=== PATIENT | female | born 1990 | race Caucasian/White ===

== ENCOUNTER 2016-10-20 20:36 | Emergency (ER) | payer OTHER ==
[2016-10-20 20:52] VITALS: BP 137/69; PULSE 119; TEMP 100.9; BMI 25.7
[2016-10-20] MEDS ORDERED: ONDANSETRON 4 MG/2 ML VIAL IVPUSH ONE (21:17)
[2016-10-20] MEDS ORDERED: SODIUM CHLORIDE 1,000 ML IV STA (21:17)
[2016-10-20] MEDS ORDERED: morphine CARPU-JECT 4 MG/1 ML DISP.SYRIN IVPUSH ONE (21:17)
[2016-10-20] MEDS ORDERED: ACETAMINOPHEN 500 MG TABLET (FP) PO ONE (21:19)
--- NOTE | 2016-10-20 21:25 | PDOC ---
History of Present Illness - General Chief Complaint: Pain Stated Complaint: ABD PAIN /FEVER Time Seen by Provider: 10/20/16 21:08 History Source: Patient Exam Limitations: No Limitations - History of Present Illness Travel History: No Initial Comments: 10/20/16 21:20 26yo Female patient w/ PmHx: Asthma and ruptured ovarian cyst presents to ED c/ o "pain in ovaries" x 1 week. Patient reports headache and fever (100.8). Patient states her LNMP: 5-4-17, usually irregular. Took test Friday and was negative. She denies dysuria, vaginal bleeding, hematuria, or any other complaints at this time. Timing/Duration: reports: getting worse Quality: reports: moderate Abdominal Pain Onset Location: reports: other (Pelvic) Pain Radiation: reports: no radiation Activities at Onset: reports: no specific activity Treatment Prior to Arrive: worse with: analgesics, antacids, cold pack, heat, laxative, enema, other Aggravating Factors: worse with: None, Defecation, Eating, Emotional upset, Exertion, [place], Movement, Voiding, Change in position Alleviating Factors: worse with: None, Belching, Shallow Breathing, Defecation, Eating, Holding Breath, Passing Gas, Change in Position, Rest, Voiding, Vomiting Past History - Travel Traveled outside of the country in the last 30 days: No Close contact w/someone who was outside of country & ill: No - Past Medical History Allergies/Adverse Reactions: Allergies Allergy/AdvReac Type Severity Reaction Status Date / Time No Known Allergies Allergy Verified 10/20/16 20:48 Home Medications: Ambulatory Orders NK [No Known Home Medication] 10/20/16 Asthma: Yes Thyroid Disease: No - Surgical History Appendectomy: Yes (@ age 4 years okd) - Reproductive History (#): 1 - Immunization History Immunization Up to Date: No - Psycho/Social/Smoking Cessation Hx Anxiety: No Suicidal Ideation: No Smoking History: Never smoked Number of Cigarettes Smoked Daily: 5 Information on smoking cessation initiated: No Hx Alcohol Use: No Drug/Substance Use Hx: No Substance Use Type: None *Physical Exam - Vital Signs Last Vital Signs Temp Pulse Resp BP Pulse Ox 100.9 F H 119 H 20 137/69 99 10/20/16 20:48 10/20/16 20:48 10/20/16 20:48 10/20/16 20:48 10/20/16 20:48 ED Treatment Course - LABORATORY CBC & Chemistry Diagram: 10/20/16 21:40 10/20/16 21:40 - RADIOLOGY Radiology Studies Ordered: Category Date Time Status PELVIS(OTHER) US [US] Stat Ultrasound 10/20/16 21:17 Ordered Medical Decision Making - Medical Decision Making 10/21/16 02:16 Patient requesting d/c. Will f/u with [facility] P[facility]. She reports improvement in symptoms. *DC/Admit/Observation/Transfer Diagnosis at time of Disposition: Pain in pelvis - Discharge Dispostion Disposition: HOME Condition at time of disposition: Improved Admit: No - Patient Instructions Printed Discharge Instructions: DI for Pelvic Pain Additional Instructions: FOLLOW UP WITH YOUR [facility] TOMORROW. CALL TO SCHEDULE APPOINTMENT. MOTRIN OR TYLENOL FOR PAIN NEEDED. RETURN IF YOU SPIKE FEVER, DEVELOP SEVERE ABDOMINAL PAIN, NAUSEA AND VOMITING OR ANY CONCERNS FOR FURTHER EVALUATION. Print Language: SWAZI - Post Discharge Activity Work/School Note: Back to Work
[2016-10-20 21:51] LABS: BASOPHIL 0.4 % (0-2.0); EOSINOPHIL 0.7 % (0-4.5); MCH 23.6 pg (25.7-33.7); MCHC 31.6 g/dl (32.0-36.0); MEAN CELL VOLUME 74.7 fl (80-96); MEAN PLT VOLUME 8.6 fl (7.5-11.1); NEUTROPHILS 63.3 % (42.8-82.8); PLATELET COUNT 234 K/MM3 (134-434); RDW 16.4 % (11.6-15.6)
[2016-10-20] MEDS ORDERED: ACETAMINOPHEN 325 MG TABLET (FP) ONE (21:52)
[2016-10-20] MEDS ORDERED: morphine CARPU-JECT 4 MG/1 ML DISP.SYRIN ONE (21:52)
[2016-10-20 22:00] LABS: URINE APPEARANCE CLEAR; URINE BILIRUBIN NEGATIVE (NEGATIVE); URINE BLOOD NEGATIVE (NEGATIVE); URINE COLOR STRAW; URINE GLUCOSE (UA) NEGATIVE (NEGATIVE); URINE KETONE NEGATIVE (NEGATIVE); URINE LEUK ESTERASE NEGATIVE (NEGATIVE); URINE NITRITE NEGATIVE (NEGATIVE); URINE PROTEIN NEGATIVE (NEGATIVE); URINE UROBILINOGEN NEGATIVE mg/dL (0.2-1.0)
[2016-10-20 22:23] LABS: ALBUMIN 3.4 g/dl (3.4-5.0); ALK PHOS 86 U/L (45-117); ANION GAP 8 (8-16); BILIRUBIN,TOTAL 0.2 mg/dL (0.2-1.0); CALCIUM 8.4 mg/dL (8.5-10.1); CO2 28 mmol/L (21-32); CREATININE 0.7 mg/dL (0.55-1.02); GLUCOSE,RANDOM 113 mg/dL (74-106); SGOT/AST 20 U/L (15-37); SGPT/ALT 24 U/L (12-78); TOT PROT 7.7 g/dl (6.4-8.2)
--- NOTE | 2016-10-20 23:05 | PDOC ---
*Physical Exam - Vital Signs Last Vital Signs Temp Pulse Resp BP Pulse Ox 100.9 F H 119 H 20 137/69 99 10/20/16 20:48 10/20/16 20:48 10/20/16 20:48 10/20/16 20:48 10/20/16 20:48 ED Treatment Course - LABORATORY CBC & Chemistry Diagram: 10/20/16 21:40 10/20/16 21:40 - ADDITIONAL ORDERS Additional order review: Laboratory Results 10/20/16 10/20/16 10/20/16 21:40 21:40 21:40 Sodium 141 Potassium 3.7 Chloride 105 Carbon Dioxide 28 Anion Gap 8 BUN 6 L Creatinine 0.7 D Creat Clearance w eGFR > 60 Random Glucose 113 H D Calcium 8.4 L Total Bilirubin 0.2 AST 20 D ALT 24 Alkaline Phosphatase 86 D Total Protein 7.7 Albumin 3.4 Serum , Qual Negative Urine Color Straw Urine Appearance Clear Urine pH 7.0 Urine Protein Negative Urine Glucose (UA) Negative Urine Ketones Negative Urine Blood Negative Urine Nitrite Negative Urine Bilirubin Negative Urine Urobilinogen Negative Ur Leukocyte Esterase Negative Urine HCG, Qual Cancelled Blood Type O POSITIVE Antibody Screen Negative 10/20/16 21:40 RBC 4.48 MCV 74.7 L MCHC 31.6 L RDW 16.4 H MPV 8.6 Neutrophils % 63.3 D Lymphocytes % 25.8 D Monocytes % 9.8 Eosinophils % 0.7 D Basophils % 0.4 - Medications Given in the ED: ED Medications Discontinued Medications Generic Name Dose Route Start Last Admin Trade Name Freq PRN Reason Stop Dose Admin Acetaminophen 1,000 mg 10/20/16 21:19 10/20/16 22:06 Tylenol - PO 10/20/16 21:20 1,000 mg ONCE ONE Administration Sodium Chloride 1,000 mls @ 1,000 mls/hr 10/20/16 21:17 10/20/16 22:06 Normal Saline - IV 10/20/16 22:16 1,000 mls/hr ASDIR STA Administration Morphine Sulfate 4 mg 10/20/16 21:17 10/20/16 22:06 Morphine Injection - IVPUSH 10/20/16 21:18 4 mg ONCE ONE Administration Ondansetron HCl 4 mg 10/20/16 21:17 10/20/16 22:06 Zofran Injection IVPUSH 10/20/16 21:18 4 mg ONCE ONE Administration Medical Decision Making - Medical Decision Making 10/20/16 23:04 Pt seen by the Advanced Practice Provider under my direct supervision Ancillary studies reviewed I agree with plan as outlined by the Advanced Practice Provider [employer]CHEOLOG[employer] FACULTY MEMBER Kevin
[2016-10-21] MEDS ORDERED: traMADol HCL 50 MG TABLET PO ONE (02:38)
[2016-10-21] MEDS ORDERED: traMADol HCL 50 MG TABLET ONE (02:41)
== END 2016-10-21 02:48 | disposition home or self-care (01) ==
LOC: JER 20:36
PROC: 3E033NZ Introduction of Analgesics, Hypnotics, Sedatives into Peripheral Vein, Percutaneous Approach (ICD-10-PCS; principal; 2016-10-20)
PROC: 3E033GC Introduction of Other Therapeutic Substance into Peripheral Vein, Percutaneous Approach (ICD-10-PCS; 2016-10-20)
DX: R10.2 Pelvic and perineal pain (principal)
CPT/HCPCS: 36415; 76830-TC; 80053; 81003; 84703; 85025; 86850; 86900; 86901; 87086; 96374; 96375; 99283-25

== ENCOUNTER 2017-04-10 10:22 | Emergency (ER) | payer OTHER ==
[2017-04-10 10:31] VITALS: BP 139/80; PULSE 106; TEMP 98.3; BMI 26.4
--- NOTE | 2017-04-10 10:57 | PDOC ---
History of Present Illness - General Chief Complaint: Back Pain Stated Complaint: BACK PAIN (11 WKS ) Time Seen by Provider: 04/10/17 10:39 History Source: Patient Exam Limitations: No Limitations - History of Present Illness Initial Comments: 04/10/17 10:55 CHIEF COMPLAINT: [Bilateral Lower back pain] HISTORY OF PRESENT ILLNESS:[ 27]-year-old [female],[ currently 11 weeks , denies any significant medical history, currently only on vitamins presents with reproducible generalized lower back pain for several days. Patient denies lifting anything heavy however has a 1-year-old at home. Has been taking Tylenol 500 mg 2 tablets every 8 hours for pain did not take any today . Patient denies any vaginal bleeding or discharge. No abdominal pain. Pain is localized to bilateral lateral lower back , Nonradiating pain, no neurosensory deficits, no bowel or bladder difficulty incontinence or urinary retention, no saddle anesthesia, no footdrop. No history of IVDU or history of cancer. ] REVIEW OF SYSTEMS: GENERAL: Afebrile, denies any weakness RESPIRATORY: No cough, wheezing, or hemoptysis. CARDIAC: No chest pain or shortness of breath MUSCULOSKELETAL: Pain to generalized lower back. No point tenderness. Pain to bilateral lower back SKIN : No erythema, no bruising, no deformity. GI/: Denies any abdominal pain, no urinary difficulty, incontinence or urinary retention. RECTAL: Denies any difficulty this A.m. NEUROLOGICAL: Denies any numbness or tingling. No neurosensory deficits. PHYSICAL EXAM: GENERAL: The patient is awake, alert, and fully oriented, in no acute distress. RESPIRATORY: Lungs clear bilaterally, no rhonchi wheezes or crackles CARDIAC: S1-S2 audible, no murmur rub or gallop MUSCULOSKELETAL: Pain to generalized lower back, nonradiating, no tingling or sensory deficit. Less than 2 second cap refill, +4 popliteal and pedal pulses. No direct spinal point tenderness. GI/: Abdomen soft, nontender, nondistended. No rebound tenderness. No masses palpable. MUSCULOSKELETAL: No spinal point tenderness. Normal reflexive and no deficits to sensation or strength. RECTAL: [Normal Rectal Tone]. SKIN: Warm, Dry, normal turgor, no erythema, no edema no bruising. 04/10/17 12:01 Past History - Past Medical History Allergies/Adverse Reactions: Allergies Allergy/AdvReac Type Severity Reaction Status Date / Time No Known Allergies Allergy Verified 04/10/17 10:27 Home Medications: Ambulatory Orders NK [No Known Home Medication] 04/10/17 Asthma: Yes COPD: No Thyroid Disease: No - Surgical History Abdominal Surgery: Yes (uterine polyps) Appendectomy: Yes (@ age 4 years okd) - Reproductive History (#): 1 - Immunization History Immunization Up to Date: No - Suicide/Smoking/Psychosocial Hx Smoking History: Never smoked Have you smoked in the past 12 months: No Number of Cigarettes Smoked Daily: 5 Information on smoking cessation initiated: No Hx Alcohol Use: No Drug/Substance Use Hx: No Substance Use Type: None *Physical Exam - Vital Signs Last Vital Signs Temp Pulse Resp BP Pulse Ox 98.3 F 106 H 18 139/80 100 04/10/17 10:28 04/10/17 10:28 04/10/17 10:28 04/10/17 10:28 04/10/17 10:28 Medical Decision Making - Medical Decision Making 04/10/17 10:57 A/P: Patient with bilateral lateral lower back pain, most likely musculoskeletal in nature 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 I will send urinalysis and urine culture to rule out acute infection 04/10/17 12:01 Laboratory Results - last 24 hr 04/10/17 10:50 Urine Color Yellow Urine Appearance Clear Urine pH 6.0 Ur Specific [place] 1.018 Urine Protein Negative Urine Glucose (UA) Negative Urine Ketones Negative Urine Blood Negative Urine Nitrite Negative Urine Bilirubin Negative Urine Urobilinogen Negative Urine is negative, Tylenol was given with good result patient states pain is mildly relieved after medication. We'll DC patient home, Tylenol as needed for pain, follow-up with her [employer]ICER if any abdominal pain, vaginal discharge or bleeding please return immediately to ER *DC/Admit/Observation/Transfer Diagnosis at time of Disposition: Musculoskeletal back pain - Discharge Dispostion Disposition: HOME Condition at time of disposition: Good Admit: No - Referrals Referrals: Pan Mckinney MD [Primary Care Provider] - - Patient Instructions Additional Instructions: Tylenol [id number] 2 tablets as needed for pain If any abdominal pain, vaginal discharge or bleeding or any other concerns return immediately to ER Recommend follow-up with PMD if pain persists - Post Discharge Activity Forms/Work/School Notes: Back to Work
[2017-04-10 11:32] LABS: URINE APPEARANCE CLEAR; URINE BILIRUBIN NEGATIVE (NEGATIVE); URINE BLOOD NEGATIVE (NEGATIVE); URINE COLOR YELLOW; URINE GLUCOSE (UA) NEGATIVE (NEGATIVE); URINE KETONE NEGATIVE (NEGATIVE); URINE LEUK ESTERASE NEGATIVE (NEGATIVE); URINE NITRITE NEGATIVE (NEGATIVE); URINE PROTEIN NEGATIVE (NEGATIVE); URINE UROBILINOGEN NEGATIVE mg/dL (0.2-1.0)
[2017-04-10] MEDS ORDERED: ACETAMINOPHEN 500 MG TABLET (FP) PO ONE (11:38)
[2017-04-10] MEDS ORDERED: ACETAMINOPHEN 500 MG TABLET (FP) ONE (11:50)
--- NOTE | 2017-04-12 07:47 | PDOC ---
Patient Follow-up (Call Back) - Post ED Follow - Up Condition at time of discharge: Good Disposition at time of original discharge: HOME Reason for Call Back: Abnwl. Microbiology (Patient's urine culture on preliminary shows staphylococcal coagulase 30,000- 40,000 CFU per milliliter. Based on patient's history of present illness and exam Will await final report.)
== END 2017-04-10 12:09 | disposition home or self-care (01) ==
LOC: JERFT 10:22
DX: O26.892 Other specified pregnancy related conditions, second trimester (principal); M79.1 Myalgia; Z3A.11 11 weeks gestation of pregnancy; J45.909 Unspecified asthma, uncomplicated
CPT/HCPCS: 81003; 87086; 87186; 99281-25

== ENCOUNTER 2017-05-10 21:13 | Emergency (ER) | payer OTHER ==
[2017-05-10 21:51] VITALS: BP 121/78; PULSE 127; TEMP 100.1; BMI 26.6
--- NOTE | 2017-05-10 22:38 | PDOC ---
History of Present Illness - General Chief Complaint: Cold Symptoms Stated Complaint: FEVER/16 WEEKS PREG Time Seen by Provider: 05/10/17 22:06 History Source: Patient Exam Limitations: No Limitations - History of Present Illness Initial Comments: This is a 27 YO (16 wks ) female with h/o anemia and asthma who presents with fever, sore throat, congestion, cough productive of white sputum, SOB, chest discomfort only when coughing, nausea, vomiting, and lower abdominal discomfort only when vomiting, all worsening for the past 2-3 days. She has been taking Tylenol for the symptoms but no additional medications. She denies any diarrhea, constipation, leg swelling or pain, rash, or other symptoms. 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 She denies vaginal bleeding or discharge. She has allergies to clindamycin. Past History - Past Medical History Allergies/Adverse Reactions: Allergies Allergy/AdvReac Type Severity Reaction Status Date / Time No Known Allergies Allergy Verified 05/10/17 21:48 Home Medications: Ambulatory Orders Nitrofurantoin Monohyd/M-Cryst [Macrobid -] 100 mg PO BID #14 capsule 04/14/17 Oseltamivir Phosphate [Tamiflu] 75 mg PO BID #9 capsule 05/11/17 Asthma: Yes COPD: No Thyroid Disease: No - Surgical History Abdominal Surgery: Yes (uterine polyps) Appendectomy: Yes (@ age 4 years okd) - Reproductive History (#): 1 - Immunization History Immunization Up to Date: No - Suicide/Smoking/Psychosocial Hx Smoking History: Never smoked Have you smoked in the past 12 months: No Number of Cigarettes Smoked Daily: 5 Hx Alcohol Use: No Drug/Substance Use Hx: No Substance Use Type: None Review of Systems - Review of Systems Able to Perform ROS?: Yes Constitutional: Yes: Chills, Fever, Weakness. No: Unexplained wgt Loss HEENTM: Yes: Nose Congestion, Throat Pain Respiratory: Yes: Cough, Shortness of Breath, Productive cough. No: Stridor, Wheezing Cardiac (ROS): Yes: Other (chest discomfort when coughing). No: Palpitations ABD/GI: Yes: Nausea, Vomiting. No: Constipated, Diarrhea : Yes: Other (no vaginal bleeding or discharge). No: Burning, Dysuria, Hematuria Musculoskeletal: No: Back Pain, Neck Pain Integumentary: No: Bruising, Rash Neurological: No: Headache, Numbness, Tingling, Weakness, Dizziness Endocrine: No: Unexplained Weight Gain, Unexplained Weight Loss *Physical Exam - Vital Signs Last Vital Signs Temp Pulse Resp BP Pulse Ox 100.1 F H 127 H 20 121/78 99 05/10/17 21:48 05/10/17 21:48 05/10/17 21:48 05/10/17 21:48 05/10/17 21:48 - Physical Exam General Appearance: Yes: Nourished, Appropriately Dressed, Other (pleasant adult female in mild distress from frequent cough productive of white sputum seen as she expectorates into sink, able to converse in complete sentences when not coughing, answering questions appropriately). No: Apparent Distress HEENT: positive: EOMI, ZOE, Normal Voice, Muffled/Hoarse voice, Pharyngeal Erythema, Nasal Congestion, Rhinorrhea, Hearing Grossly Normal. negative: Scleral Icterus (R), Scleral Icterus (L), Tonsillar Exudate, Tonsillar Erythema Neck: positive: Trachea midline, Supple. negative: Tender, Rigid, Lymphadenopathy (R), Lymphadenopathy (L) Respiratory/Chest: positive: Lungs Clear, Normal Breath Sounds. negative: Respiratory Distress, Crackles, Rhonchi, Stridor, Wheezing Cardiovascular: positive: Regular Rhythm, S1, S2, Tachycardia. negative: Murmur Gastrointestinal/Abdominal: positive: Normal Bowel Sounds, Soft, Other (gravid) . negative: Tender, Organomegaly, Pulsatile Mass, Guarding Musculoskeletal: positive: Normal Inspection. negative: Decreased Range of Motion, Vertebral Tenderness Extremity: positive: Normal Capillary Refill, Normal Inspection, Normal Range of Motion. negative: Tender, Cyanosis Integumentary: positive: Normal Color, Dry, Warm. negative: Erythema, Rash, Bruising Neurologic: positive: shop assistant II-XII NML intact (grossly), Fully Oriented, Alert, Normal Mood/Affect, Normal Response, Motor Strength 5/5 ED Treatment Course - LABORATORY CBC & Chemistry Diagram: 05/10/17 23:15 05/10/17 23:15 Medical Decision Making - Medical Decision Making 27 YOF who is , 16 wks , h/o asthma and anemia, p/w productive cough , fever, SOB x2d. On exam VS notable for tachycardia to 127, fever to 100.1, mild distress d/t coughing. *DC/Admit/Observation/Transfer Diagnosis at time of Disposition: Influenza A Fever Qualifiers: Fever type: unspecified Qualified Code(s): R50.9 - Fever, unspecified Qualifiers: Weeks of gestation: 16 weeks Qualified Code(s): Z3A.16 - 16 weeks gestation of - Discharge Dispostion Disposition: HOME Condition at time of disposition: Stable Admit: No - Prescriptions Prescriptions: Oseltamivir Phosphate [Tamiflu] 75 mg PO BID #9 capsule - Referrals Referrals: Pan Mckinney MD [Primary Care Provider] - - Patient Instructions Printed Discharge Instructions: DI for Influenza -- Adult Additional Instructions: You were seen in the ER for fever, cough, and shortness of breath. We did lab work on your blood and urine, and did a flu swab, as well as an electrocardiogram. The only abnormality we found was that you are influenza A positive. There is a urine culture test being run on your urine sample, and this takes 2 days to get official results. If the results are positive, we will call you in 2 days. If you do not receive a call and begin having burning on urination, please call into the ER to talk about results of the urine culture. Please take the Tamiflu antiviral prescription we are sending to your pharmacy. Follow up with your regular doctor, or return to the emergency room for any new or worsening symptoms. If your baby at home (or other family members) start becoming sick with similar symptoms, take them to the doctor. - Post Discharge Activity Forms/Work/School Notes: Back to Work
[2017-05-10] MEDS ORDERED: ACETAMINOPHEN 1000 MG/100 ML VIAL (NON FORMULARY) IVPB ONE (22:43)
[2017-05-10] MEDS ORDERED: SODIUM CHLORIDE 500 ML IV STA (22:43)
[2017-05-10] MEDS ORDERED: ACETAMINOPHEN INJECTION 100 ML IVPB ONE (23:15)
[2017-05-10 23:27] LABS: BASO % 0.4 % (0-2.0); EOS % 1.2 % (0-4.5); HEMATOCRIT 36.3 % (32.4-45.2); HEMOGLOBIN 11.6 GM/dL (10.7-15.3); MCH 24.1 pg (25.7-33.7); MEAN CELL VOLUME 75.4 fl (80-96); MEAN PLT VOLUME 9.5 fl (7.5-11.1); MONO % 14.4 % (3.8-10.2); PLATELET COUNT 201 K/MM3 (134-434); RBC 4.81 M/mm3 (3.60-5.2); RDW 19.1 % (11.6-15.6); WHITE BLOOD COUNT 5.4 K/mm3 (4.0-10.0)
[2017-05-10 23:28] LABS: URINE APPEARANCE SLCLOUDY; URINE BILIRUBIN NEGATIVE (NEGATIVE); URINE BLOOD NEGATIVE (NEGATIVE); URINE COLOR LTYELLOW; URINE GLUCOSE (UA) NEGATIVE (NEGATIVE); URINE KETONE NEGATIVE (NEGATIVE); URINE NITRITE NEGATIVE (NEGATIVE); URINE PROTEIN NEGATIVE (NEGATIVE); URINE UROBILINOGEN NEGATIVE mg/dL (0.2-1.0)
[2017-05-10 23:33] LABS: URINE LEUK ESTERASE 2+ (NEGATIVE)
[2017-05-10 23:34] LABS: EPI CELLS FEW /HPF (FEW); URINE BACTERIA RARE /hpf (NONE SEEN)
[2017-05-10 23:50] LABS: ALBUMIN 3.2 g/dl (3.4-5.0); ALK PHOS 61 U/L (45-117); ANION GAP 11 (8-16); BILIRUBIN,TOTAL 0.2 mg/dL (0.2-1.0); BLOOD UREA NITROGEN 5 mg/dL (7-18); CALCIUM 8.3 mg/dL (8.5-10.1); CHLORIDE 102 mmol/L (98-107); CO2 25 mmol/L (21-32); CREATININE 0.6 mg/dL (0.55-1.02); GLUCOSE,RANDOM 114 mg/dL (74-106); MAGNESIUM 1.7 mg/dL (1.8-2.4); POTASSIUM 3.5 mmol/L (3.5-5.1); SGOT/AST 17 U/L (15-37); SGPT/ALT 20 U/L (12-78); SODIUM 138 mmol/L (136-145); TOT PROT 7.7 g/dl (6.4-8.2)
--- NOTE | 2017-05-10 23:59 | PDOC ---
Attending Attestation - HPI HPI: 05/11/17 01:25 The patient is a 27 year old female, 16 weeks (), with a significant past medical history of anemia who presents to the ED with cold like symptoms for several days. The patient reports a productive cough of white sputum, a subjective fever, nausea, and vomiting. Patient also reports chest discomfort and lower abdominal pain only when she cough. She reports taking tylenol with slight relief of present symptoms. Denies shortness of breath. Denies dysuria or change in urinary output. Denies vaginal discharge or bleeding. Denies any other symptoms. - Physicial Exam PE: 05/11/17 01:25 GENERAL: Awake, alert, and fully oriented, in no acute distress HEAD: No signs of trauma EYES: PERRLA, EOMI, sclera anicteric, conjunctiva clear ENT: Auricles normal inspection, hearing grossly normal, nares patent, oropharynx clear without exudates. Moist mucosa NECK: Normal ROM, supple, no lymphadenopathy, JVD, or masses LUNGS: Breath sounds equal, clear to auscultation bilaterally. No wheezes, and no crackles HEART: tachy but regular, rate 104, normal S1 and S2, no murmurs, rubs or gallops ABDOMEN: Soft, nontender, normoactive bowel sounds. No guarding, no rebound. Gravid uterus to 3 cm above pubic symphasis EXTREMITIES: Normal range of motion, no edema. No clubbing or cyanosis. No cords , erythema, or tenderness BACK: No midline spinal tenderness in cervical/thoracic/lumbar region NEUROLOGICAL: Normal speech, cranial nerves intact, negative pronator drift, 5/ 5 strength in all 4 extremities, normal sensation to light touch in all 4 extremities, normal cerebellar exam, normal gait, normal reflexes and tone SKIN: Warm, Dry, normal turgor, no rashes or lesions noted. <Beatris Kim - Last Filed: 05/11/17 01:25> - Resident Resident Name: Nikki Dawkins - ED Attending Attestation I have performed the following: I have examined & evaluated the patient, The case was reviewed & discussed with the resident, I agree w/resident's findings & plan, Exceptions are as noted - Medical Decision Making 05/10/17 23:09 27-year-old female, 16 weeks , presents with body aches, nausea, cough, and pain in her chest and abdomen only when she coughs. Vitals remarkable for elevated temperature to 100.1 and tachycardia initially to 125. On my exam her heart rate is 104. Exam is unremarkable with clear lungs and no abdominal tenderness to palpation. 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 We'll obtain an EKG, basic labs, and urinalysis. Given that her lungs are clear well not obtain an x-ray. Tachycardia is likely due to elevated temperature and probable decreased PO intake due to nausea. We'll give fluids and reassess vitals. 05/11/17 00:44 Repeat heart rate after fluids 98. Remainder of vitals wnl. Patient is Flu A positive. She was given a dose of Tamiflu and a prescription sent to pharmacy. All results discussed the patient. She requests discharge home. I discussed the physical exam findings, ancillary test results and final diagnoses with the patient. I answered all of the patient's questions. The patient was satisfied with the care received and felt comfortable with the discharge plan and treatment plan. The patient will call their primary care physician within 24 hours to arrange follow-up and will return to the Emergency Department with any new, persistent or worsening symptoms. <Gini Topete - Last Filed: 05/11/17 01:45>
[2017-05-11] MEDS ORDERED: OSELTAMIVIR PHOSPHATE 75 MG CAPSULE PO ONE (00:02)
[2017-05-11] MEDS ORDERED: OSELTAMIVIR PHOSPHATE 75 MG CAPSULE ONE (00:04)
--- NOTE | 2017-05-11 12:24 | EKG ---
Test Reason : Blood Pressure : / mmHG Vent. Rate : 109 BPM Atrial Rate : 109 BPM P-R Int : 188 ms QRS Dur : 078 ms QT Int : 318 ms P-R-T Axes : 054 062 028 degrees QTc Int : 428 ms SINUS TACHYCARDIA NONSPECIFIC T WAVE ABNORMALITY ABNORMAL ECG NO PREVIOUS ECGS AVAILABLE CLINICAL CORRELATION IS RECOMMENDED Confirmed by CHANDLER RIBEIRO, SHAHID ([id number]) on 05/11/2017 12:24:10 PM Referred By: Confirmed By:SHAHID ARTEAGA MD
--- NOTE | 2017-05-13 07:31 | PDOC ---
Patient Follow-up (Call Back) - Post ED Follow - Up Condition at time of discharge: Stable Disposition at time of original discharge: HOME Reason for Call Back: Abnwl. Microbiology - Disposition Additional Instructions/Notes: Urine preliminary shows staphylococcal coagulation negative. Patient's labs including UA in the ED were within normal limits except for she was positive for influenza A. Will await final report.
== END 2017-05-11 00:24 | disposition home or self-care (01) ==
LOC: JER 21:13
PROC: 3E033NZ Introduction of Analgesics, Hypnotics, Sedatives into Peripheral Vein, Percutaneous Approach (ICD-10-PCS; principal; 2017-05-10)
DX: O98.512 Other viral diseases complicating pregnancy, second trimester (principal); J09.X2 Influenza due to identified novel influenza A virus with other respiratory manifestations; Z3A.16 16 weeks gestation of pregnancy
CPT/HCPCS: 36415; 80053; 81003; 81015; 82550; 83735; 84484; 85025; 87086; 87186; 87804; 93005; 93010; 96374; 99282-25

== ENCOUNTER 2017-05-11 16:33 | Emergency (ER) | payer OTHER ==
[2017-05-11 16:55] VITALS: BMI 26.6
[2017-05-11] MEDS ORDERED: ACETAMINOPHEN 500 MG TABLET (FP) PO ONE ×2 (16:58→23:03)
--- NOTE | 2017-05-11 17:24 | PDOC ---
History of Present Illness - General Chief Complaint: Respiratory Stated Complaint: CHEST PAIN Time Seen by Provider: 05/11/17 17:22 - History of Present Illness Initial Comments: 05/11/17 17:32 27 yo at 16 wga with h/o anemia who presents with cough. Patient reports ongoing cough with clear sputum production, myalgias, pleuritic chest pain, abdominal discomfort, subjective fevers, congestion, and sore throat. Reports inability to tolerate Tamiflu today d/t emesis. Denies vaginal bleeding, dysuria , diarrhea, hematuria, palpitations, wheezing, LOC. Symptoms refractory to OTC Tylenol. 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 Patient recently evaluated in [facility] ED ( 05/10/16) and was Flu A positive. Sent home with Tamiflu. Past History - Past Medical History Allergies/Adverse Reactions: Allergies Allergy/AdvReac Type Severity Reaction Status Date / Time No Known Allergies Allergy Verified 05/11/17 16:49 Home Medications: Ambulatory Orders Nitrofurantoin Monohyd/M-Cryst [Macrobid -] 100 mg PO BID #14 capsule 04/14/17 Ondansetron HCl [Zofran] 4 mg PO TID PRN 7 Days #21 tablet MDD 3 tab 05/11/17 Oseltamivir Phosphate [Tamiflu] 75 mg PO BID #9 capsule 05/11/17 Asthma: Yes COPD: No Thyroid Disease: No - Surgical History Abdominal Surgery: Yes (uterine polyps) Appendectomy: Yes (@ age 4 years okd) - Reproductive History (#): 1 - Immunization History Immunization Up to Date: No - Suicide/Smoking/Psychosocial Hx Smoking History: Former smoker Have you smoked in the past 12 months: Yes Number of Cigarettes Smoked Daily: 5 Information on smoking cessation initiated: No Hx Alcohol Use: No Drug/Substance Use Hx: No Substance Use Type: None Review of Systems - Review of Systems Comments:: 05/11/17 17:24 GENERAL/CONSTITUTIONAL: No fever or chills. No weakness. HEAD, EYES, EARS, NOSE AND THROAT: No change in vision. No ear pain or discharge. No sore throat.- CARDIOVASCULAR: No chest pain or shortness of breath RESPIRATORY: No cough, wheezing, or hemoptysis. GASTROINTESTINAL: No nausea, vomiting, diarrhea or constipation. GENITOURINARY: No dysuria, frequency, or change in urination. MUSCULOSKELETAL: No joint or muscle swelling or pain. No neck or back pain. SKIN: No rash NEUROLOGIC: No headache, vertigo, loss of consciousness, or change in strength/ sensation. ENDOCRINE: No increased thirst. No abnormal weight change HEMATOLOGIC/LYMPHATIC: No anemia, easy bleeding, or history of blood clots. ALLERGIC/IMMUNOLOGIC: No hives or skin allergy. *Physical Exam - Vital Signs Last Vital Signs Temp Pulse Resp BP Pulse Ox 102.9 F H 138 H 24 137/91 100 05/11/17 16:49 05/11/17 16:49 05/11/17 16:49 05/11/17 16:49 05/11/17 16:49 - Physical Exam Comments: 05/11/17 17:24 GENERAL: Awake, alert, and fully oriented, in no acute distress HEAD: No signs of trauma, normocephalic, atraumatic EYES: PERRLA, EOMI, sclera anicteric, conjunctiva clear ENT: Hearing grossly normal, nares patent, oropharynx clear without exudates. Moist mucosa NECK: Normal ROM, no JVD, or masses LUNGS: No distress, speaks full sentences, clear to auscultation bilaterally HEART: irregular rate and rhythm, normal S1 and S2, no murmurs, rubs or gallops , peripheral pulses normal and equal bilaterally. ABDOMEN: Soft, epigastric ttp, normoactive bowel sounds. No guarding, no rebound. No masses EXTREMITIES : Normal inspection, Normal range of motion, no edema. No clubbing or cyanosis. SKIN: Warm, Dry, normal turgor, no rashes or lesions noted. ED Treatment Course - Medications Given in the ED: ED Medications Discontinued Medications Generic Name Dose Route Start Last Admin Trade Name Freq PRN Reason Stop Dose Admin Acetaminophen 975 mg 05/11/17 16:58 05/11/17 17:03 Tylenol - PO 05/11/17 16:59 975 mg NOW ONE Administration Medical Decision Making - Medical Decision Making 05/11/17 17:36 27 yo at 16 wga with h/o anemia, and asthma who presents with cough. Patient reports ongoing cough with clear sputum production, myalgias, pleuritic chest pain, abdominal discomfort, subjective fevers, congestion, and sore throat. Reports inability to tolerate Tamiflu today d/t emesis. Denies vaginal bleeding, dysuria, diarrhea, hematuria, palpitations, wheezing, LOC. Symptoms refractory to OTC Tylenol. Flu A positive ( 05/10/16). Physical exam uremarkable. Sinus tachycardia 138. Symptoms most likely 2/2 influenza in setting of recent diagnosis and contd, stable symptoms. ED Course: EKG: Sinus tachycardia, with absent DARRICK, STD, or TWI. Normal interval duration. Normal axis Zofran, IV NS, Tylenol Patient symptoms improved and stable for d/c with return precautions. Advised to f/u with PMD. Zofran sent to pharmacy. *DC/Admit/Observation/Transfer Diagnosis at time of Disposition: Nausea and vomiting during - Discharge Dispostion Disposition: HOME Condition at time of disposition: Stable Admit: No - Prescriptions Prescriptions: Ondansetron HCl [Zofran] 4 mg PO TID PRN 7 Days #21 tablet MDD 3 tab PRN Reason: Nausea - Referrals Referrals: Pan Mckinney MD [Primary Care Provider] - - Patient Instructions Additional Instructions: Please return to the emergency department with any new or worsening symptoms or concerns. Please follow up with your primary care physician within one week. Please take zofran as tolerated. - Post Discharge Activity - Attestations Physician Attestion: 05/11/17 18:18 I attest to the documentation provided in this note.
[2017-05-11] MEDS ORDERED: ONDANSETRON 4 MG TABLET PO ONE (17:51)
[2017-05-11] MEDS ORDERED: SODIUM CHLORIDE 1,000 ML IV STA (17:51)
[2017-05-11] MEDS ORDERED: ONDANSETRON *ODT* 4 MG TABLET ONE (17:58)
[2017-05-11 18:57] VITALS: PULSE 113
--- NOTE | 2017-05-11 22:54 | PDOC ---
Attending Attestation - Resident Resident Name: Conner Young - ED Attending Attestation I have performed the following: I have examined & evaluated the patient, The case was reviewed & discussed with the resident, I agree w/resident's findings & plan, Exceptions are as noted - HPI HPI: 05/11/17 22:51 27 yo female who is preganant she has influenza disgnosed yesterday who p/w pelvic pain and nausea - Physicial Exam PE: 05/11/17 22:56 27-year-old female who has had some nausea and was not able to keep her tablets down. Patient was given IV fluids and Zofran Well-nourished, well-developed 27-year-old female. Head normocephalic, atraumatic. Neck no bruits, supple, no significant lymphadenopathy. Lungs clear to auscultation bilaterally CVS tachycardia Abdomen slightly protuberant, no rebound or guarding. Pelvis deferred. Extremities no significant edema, cellulitis or erythema. Skin warm and dry. Neuro alert and oriented 3 with no gross focal neural deficits - Medical Decision Making 05/11/17 22:58 Ultrasound shows a single live intrauterine of 16 weeks and one day, heart tones at 150s beats, cervical length 3.2 cm, movement is seen,
--- NOTE | 2017-05-11 23:04 | PDOC ---
History of Present Illness <Bonnie Jenkins - Last Filed: 05/11/17 23:04> <Briseyda Lal - Last Filed: 05/11/17 23:09> - General Chief Complaint: Respiratory Stated Complaint: CHEST PAIN Time Seen by Provider: 05/11/17 17:22 Past History - Past Medical History Asthma: Yes COPD: No Thyroid Disease: No - Surgical History Abdominal Surgery: Yes (uterine polyps) Appendectomy: Yes (@ age 4 years okd) - Reproductive History (#): 1 - Immunization History Immunization Up to Date: No - Suicide/Smoking/Psychosocial Hx Smoking History: Former smoker Have you smoked in the past 12 months: Yes Number of Cigarettes Smoked Daily: 5 Information on smoking cessation initiated: No Hx Alcohol Use: No Drug/Substance Use Hx: No Substance Use Type: None <Bonnie Jenkins - Last Filed: 05/11/17 23:04> <Briseyda Lal - Last Filed: 05/11/17 23:09> - Past Medical History Allergies/Adverse Reactions: Allergies Allergy/AdvReac Type Severity Reaction Status Date / Time No Known Allergies Allergy Verified 05/11/17 16:49 Home Medications: Ambulatory Orders Nitrofurantoin Monohyd/M-Cryst [Macrobid -] 100 mg PO BID #14 capsule 04/14/17 Ondansetron HCl [Zofran] 4 mg PO TID PRN 7 Days #21 tablet MDD 3 tab 05/11/17 Oseltamivir Phosphate [Tamiflu] 75 mg PO BID #9 capsule 05/11/17 *Physical Exam - Vital Signs Last Vital Signs Temp Pulse Resp BP Pulse Ox 99.8 F H 113 H 16 109/67 99 05/11/17 18:56 05/11/17 18:56 05/11/17 18:56 05/11/17 18:56 05/11/17 18:56 <Bonnie Jenkins - Last Filed: 05/11/17 23:04> - Vital Signs Last Vital Signs Temp Pulse Resp BP Pulse Ox 102.3 F H 113 H 16 118/57 99 05/11/17 23:06 05/11/17 18:56 05/11/17 18:56 05/11/17 23:06 05/11/17 18:56 <Briseyda Lal - Last Filed: 05/11/17 23:09> ED Treatment Course - RADIOLOGY Radiology Studies Ordered: Category Date Time Status FOLLOW-UP US [US] Stat Ultrasound 05/11/17 20:18 Taken - Medications Given in the ED: ED Medications Discontinued Medications Generic Name Dose Route Start Last Admin Trade Name Freq PRN Reason Stop Dose Admin Acetaminophen 975 mg 05/11/17 16:58 05/11/17 17:03 Tylenol - PO 05/11/17 16:59 975 mg NOW ONE Administration Sodium Chloride 1,000 mls @ 1,000 mls/hr 05/11/17 17:51 05/11/17 18:14 Normal Saline - IV 05/11/17 18:50 1,000 mls/hr ASDIR STA Administration Ondansetron HCl 4 mg 05/11/17 17:51 05/11/17 18:14 Zofran - PO 05/11/17 17:52 4 mg ONCE ONE Administration <Bonnie Jenkins - Last Filed: 05/11/17 23:04> - RADIOLOGY Radiology Studies Ordered: US OB limited Impression: Single living intrauterine 16 weeks one day. Evaluation of anatomy is limited by early gestational age. Reported by: Fazal Mosquera MD 05/11/17 22:05 - Medications Given in the ED: ED Medications Discontinued Medications Generic Name Dose Route Start Last Admin Trade Name Freq PRN Reason Stop Dose Admin Acetaminophen 975 mg 05/11/17 16:58 05/11/17 17:03 Tylenol - PO 05/11/17 16:59 975 mg NOW ONE Administration Acetaminophen 975 mg 05/11/17 23:03 05/11/17 23:07 Tylenol - PO 05/11/17 23:04 975 mg ONCE ONE Administration Sodium Chloride 1,000 mls @ 1,000 mls/hr 05/11/17 17:51 05/11/17 18:14 Normal Saline - IV 05/11/17 18:50 1,000 mls/hr ASDIR STA Administration Ondansetron HCl 4 mg 05/11/17 17:51 05/11/17 18:14 Zofran - PO 05/11/17 17:52 4 mg ONCE ONE Administration <Briseyda Lal - Last Filed: 05/11/17 23:09> *DC/Admit/Observation/Transfer <Bonnie Jenkins - Last Filed: 05/11/17 23:04> <LukaszBriseyda mack - Last Filed: 05/11/17 23:09> Diagnosis at time of Disposition: Nausea and vomiting during , Influenza A - Discharge Dispostion Disposition: HOME Condition at time of disposition: Stable - Prescriptions Prescriptions: Ondansetron HCl [Zofran] 4 mg PO TID PRN 7 Days #21 tablet MDD 3 tab PRN Reason: Nausea - Referrals Referrals: Pan Mckinney MD [Primary Care Provider] - - Patient Instructions Printed Discharge Instructions: DI for Hyperemesis Gravidarum Additional Instructions: Please return to the emergency department with any new or worsening symptoms or concerns. Please follow up with your primary care physician within one week. Please take zofran as tolerated. - Post Discharge Activity
[2017-05-11 23:07] VITALS: BP 118/57; TEMP 102.3
[2017-05-11] MEDS ORDERED: ACETAMINOPHEN 325 MG TABLET (FP) ONE (23:08)
--- NOTE | 2017-05-14 12:40 | EKG ---
Test Reason : Blood Pressure : / mmHG Vent. Rate : 135 BPM Atrial Rate : 000 BPM P-R Int : 000 ms QRS Dur : 070 ms QT Int : 382 ms P-R-T Axes : 000 058 041 degrees QTc Int : 573 ms SUPRAVENTRICULAR TACHYCARDIA OTHERWISE NORMAL ECG WHEN COMPARED WITH ECG OF 10-MAY-2017 23:49, NONSPECIFIC T WAVE ABNORMALITY, WORSE IN ANTERIOR LEADS Confirmed by DAVID VICTOR MD ([id number]) on 05/14/2017 12:40:05 PM Referred By: Confirmed By:DAVID VICTOR MD
== END 2017-05-11 23:12 | disposition home or self-care (01) ==
LOC: JER 16:33
PROC: 3E0337Z Introduction of Electrolytic and Water Balance Substance into Peripheral Vein, Percutaneous Approach (ICD-10-PCS; principal; 2017-05-11)
DX: O98.512 Other viral diseases complicating pregnancy, second trimester (principal); J09.X2 Influenza due to identified novel influenza A virus with other respiratory manifestations; Z3A.16 16 weeks gestation of pregnancy
CPT/HCPCS: 76816-TC; 93005; 93010; 96360; 99285-25

== ENCOUNTER 2020-06-04 15:57 | Emergency (ER) | payer OTHER ==
[2020-06-04 16:05] VITALS: BP 130/85; PULSE 91; TEMP 97; BMI 28.7
[2020-06-04] MEDS ORDERED: KETOROLAC TROMETHAMINE 60 MG/2 ML VIAL IM ONE (16:44)
[2020-06-04] MEDS ORDERED: KETOROLAC TROMETHAMINE 60 MG/2 ML VIAL ONE (16:54)
== END 2020-06-04 17:50 | disposition home or self-care (01) ==
LOC: JERFT 15:57
PROC: 3E023GC Introduction of Other Therapeutic Substance into Muscle, Percutaneous Approach (ICD-10-PCS; principal; 2020-06-04)
DX: M54.5 Low back pain (principal)
CPT/HCPCS: 72100-TC-FY; 84703; 96372; 99284-25

== ENCOUNTER 2021-03-22 21:37 | Emergency (ER) | payer OTHER ==
[2021-03-22 21:58] VITALS: TEMP 98; BMI 29.3
[2021-03-22] MEDS ORDERED: ACETAMINOPHEN 325 MG TABLET (FP) PO ONE (23:08)
[2021-03-22] MEDS ORDERED: ACETAMINOPHEN 325 MG TABLET (FP) ONE (23:22)
[2021-03-22 23:52] LABS: BASO % 0.5 % (0-2.0); HEMATOCRIT 28.6 % (32.4-45.2); LYMPH % 25.2 % (8-40); MCHC 31.3 g/dl (32.0-36.0); MEAN CELL VOLUME 70.1 fl (80-96); MEAN PLT VOLUME 7.9 fl (7.5-11.1); MONO % 13.5 % (3.8-10.2); NEUT % 59.8 % (42.8-82.8); PLATELET COUNT 277 10^3/uL (134-434); RBC 4.08 M/mm3 (3.60-5.2); WHITE BLOOD COUNT 7.1 K/mm3 (4.0-10.0)
[2021-03-23 00:11] LABS: CHLORIDE 108 mmol/L (98-107); SODIUM 139 mmol/L (136-145)
[2021-03-23 00:13] LABS: CALCIUM 8.5 mg/dL (8.5-10.1)
[2021-03-23 00:14] LABS: ALBUMIN 3.4 g/dl (3.4-5.0); ANION GAP 9 MMOL/L (8-16); BLOOD UREA NITROGEN 5.9 mg/dL (7-18); CO2 22 mmol/L (21-32); GLUCOSE,RANDOM 95 mg/dL (74-106)
[2021-03-23 00:17] LABS: CREATININE 0.6 mg/dL (0.55-1.3); SGOT/AST 18 U/L (15-37); SGPT/ALT 27 U/L (13-61)
[2021-03-23 00:19] LABS: BILIRUBIN,TOTAL 0.3 mg/dL (0.2-1); TOT PROT 7.6 g/dl (6.4-8.2)
[2021-03-23 00:20] LABS: ALK PHOS 72 U/L (45-117)
[2021-03-23] MEDS ORDERED: METOCLOPRAMIDE HCL 10 MG TABLET (FP) PO ONE ×2 (00:55→01:38)
[2021-03-23 02:27] VITALS: BP 127/82; PULSE 98
[2021-03-23 04:16] LABS: ANISOCYTOSIS 3+; MACROCYTOSIS 0; OVALOCYTE 1+; PLATELET ESTIMATE NORMAL
== END 2021-03-23 02:30 | disposition home or self-care (01) ==
LOC: JER 21:37
DX: R07.9 Chest pain, unspecified (principal)
CPT/HCPCS: 36415; 71045-TC-FY; 80053; 82550; 84484; 85025; 93005; 93010; 99285-25

== ENCOUNTER 2021-07-24 13:14 | Emergency (ER) | payer OTHER ==
[2021-07-24 13:27] VITALS: TEMP 99.9; BMI 24.3
[2021-07-24] MEDS ORDERED: ACETAMINOPHEN 500 MG TABLET (FP) PO ONE (14:31)
[2021-07-24] MEDS ORDERED: ACETAMINOPHEN 500 MG TABLET (FP) ONE (14:33)
[2021-07-24 15:29] LABS: EPI CELLS 4 /uL (0-25.1); HYALINE CASTS 0 /uL (0-3.1); URINE APPEARANCE CLEAR; URINE BILIRUBIN NEGATIVE (NEGATIVE); URINE COLOR DK YELLOW; URINE GLUCOSE (UA) NEGATIVE (NEGATIVE); URINE KETONE NEGATIVE (NEGATIVE); URINE LEUK ESTERASE TRACE (NEGATIVE); URINE NITRITE POSITIVE (NEGATIVE); URINE PROTEIN NEGATIVE (NEGATIVE); URINE RBC 29 /uL (0-23.9); URINE WBC 6 /uL (0-25.8)
[2021-07-24 15:31] LABS: HCG,QUALITATIVE URINE Negative
[2021-07-24 16:04] VITALS: BP 133/77; PULSE 100
[2021-07-25 12:08] LABS: SARS-CoV-2 NAA Not Detected (Not Detected)
== END 2021-07-24 16:07 | disposition home or self-care (01) ==
LOC: JERFT 13:14 → JER 13:14 → JERFT 16:07
DX: N39.0 Urinary tract infection, site not specified (principal)
CPT/HCPCS: 81003; 84703; 87086; 87804; 99283-25; C9803-CS; U0003; U0005

== ENCOUNTER 2021-09-24 18:02 | Emergency (ER) | payer OTHER ==
[2021-09-24 18:35] VITALS: BMI 28.8
[2021-09-24] MEDS ORDERED: SODIUM CHLORIDE 1,000 ML IV STA (18:46)
[2021-09-24] MEDS ORDERED: ACETAMINOPHEN 1000 MG/100 ML BAG IVPB ONE (18:46)
[2021-09-24] MEDS ORDERED: ACETAMINOPHEN INJECTION 100 ML IVPB ONE (19:23)
[2021-09-24 19:34] LABS: BASO % 0.5 % (0-2.0); EOS % 0.6 % (0-4.5); HEMATOCRIT 29.6 % (32.4-45.2); HEMOGLOBIN 9.4 GM/dL (10.7-15.3); LYMPH % 20.7 % (8-40); MCH 20.3 pg (25.7-33.7); MCHC 31.8 g/dl (32.0-36.0); MEAN CELL VOLUME 63.7 fl (80-96); MEAN PLT VOLUME 8.6 fl (7.5-11.1); MONO % 10.7 % (3.8-10.2); NEUT % 67.5 % (42.8-82.8); PLATELET COUNT 316 10^3/uL (134-434); RBC 4.65 M/mm3 (3.60-5.2); RDW 19.5 % (11.6-15.6); WHITE BLOOD COUNT 7.2 K/mm3 (4.0-10.0)
[2021-09-24 19:56] LABS: CALCIUM 8.5 mg/dL (8.5-10.1)
[2021-09-24 19:57] LABS: ALBUMIN 3.7 g/dl (3.4-5.0); BLOOD UREA NITROGEN 6.5 mg/dL (7-18)
[2021-09-24 20:00] LABS: CREATININE 0.6 mg/dL (0.55-1.3)
[2021-09-24 20:02] LABS: BILIRUBIN,TOTAL 0.2 mg/dL (0.2-1); TOT PROT 7.8 g/dl (6.4-8.2)
[2021-09-24 20:07] LABS: ANISOCYTOSIS 3+; MACROCYTOSIS 0; OVALOCYTE 1+; TEAR DROP CELLS 1+
[2021-09-24] MEDS ORDERED: DEXAMETHASONE SOD PHOSPHATE 10 MG/1 ML VIAL IM ONE (20:28)
[2021-09-24] MEDS ORDERED: DEXAMETHASONE SOD PHOSPHATE 10 MG/1 ML VIAL ONE (20:28)
[2021-09-24 21:23] LABS: THROAT:GRP A STREP NOT DETECTED (NOTDETECTED)
[2021-09-24 23:22] VITALS: BP 122/70; PULSE 78; TEMP 98
== END 2021-09-24 21:55 | disposition home or self-care (01) ==
LOC: JER 18:02
PROC: 3E0333Z Introduction of Anti-inflammatory into Peripheral Vein, Percutaneous Approach (ICD-10-PCS; principal; 2021-09-24)
PROC: 3E023GC Introduction of Other Therapeutic Substance into Muscle, Percutaneous Approach (ICD-10-PCS; 2021-09-24)
PROC: 3E0337Z Introduction of Electrolytic and Water Balance Substance into Peripheral Vein, Percutaneous Approach (ICD-10-PCS; 2021-09-24)
DX: R05.9 Cough, unspecified (principal); J02.9 Acute pharyngitis, unspecified
CPT/HCPCS: 0241U-QW; 36415; 80053; 84703; 85025; 87651; 96361; 96374; 96375; 99284-25; J1100